=== PATIENT | female | born 1990 | race Caucasian/White ===

== ENCOUNTER 2021-10-31 19:11 | Emergency (ER) | payer OTHER, SELFPAY ==
[2021-10-31 19:12] VITALS: BP 178/118; PULSE 80; RESP 16; TEMP 36.1; O2SAT 100; BMI 45.4
--- NOTE | 2021-10-31 19:28 | CT_ITS ---
STUDY: CT ABDOMEN AND PELVIS WITH CONTRAST REASON FOR EXAM: Female, 31 years old. abdominal pain RADIATION DOSAGE (If Supplied By Facility): CTDIvol = ( 20.04 ) mGy, DLP = ( 1271.24 ) mGycm TECHNIQUE: Transaxial images were obtained from the dome of the diaphragm to the symphysis pubis without oral contrast. IV 100mL Isovue-370 was administered. Sagittal and coronal images were reconstructed. Individualized dose optimization techniques were used for this CT. COMPARISON: None. FINDINGS: The visualized lung bases are unremarkable. The visualized portions of the heart are within normal limits. Liver is prominent and fatty infiltrated without mass or bile duct dilatation.. Gallbladder is distended without calcified stones or pericholecystic edema. Normal spleen. There is borderline splenomegaly. Normal bilateral adrenal glands. Normal right kidney. Normal left kidney. Normal visualized stomach. Normal small intestine. Normal colon. The appendix is visualized and appears normal. Normal abdominal aorta. Normal inferior vena cava. Normal retroperitoneum. Normal urinary bladder. There is an air shadow seen within the vaginal vault possibly representing a tampon Normal abdominal wall. Normal osseous structures. CT/Abdomen/Pelvis W IV Cont ONLY IMPRESSION: Enlarged fatty infiltrated liver with borderline splenomegaly. Distended gallbladder without calcified stones or pericholecystic edema possibly physiologic. If concern for gallbladder disease ultrasound recommended Electronically Signed: Cheng Napier MD at 22:21 EST , Service support ,
--- NOTE | 2021-10-31 19:29 | EDS_ITS ---
HPI History of Present Illness Chief Complaint: Abd Pain Informant: patient Narrative Narrative: 31-year-old female arrives to the emergency department with right upper quadrant abdominal pain and nausea. Symptoms began not quite 2 hours ago. She notes the symptoms began about 2 hours after she ate some vegetables and tunafish. She states that prior to today she has not had any difficulty eating. She notes normal bowel movements and normal urination. She has had prior C- section surgeries but no other abdominal surgeries. [facility] Medical History GERD (gastroesophageal reflux disease) Hypertension in Home Medications NK 10/31/21 [History Last Taken Unknown] Allergy/AdvReac Type Severity Reaction Status Date / Time No Known Allergies Allergy Unverified 10/31/21 19:11 Family History Mother Depression Anxiety Liver disease Arthritis Hypertension Surgical History History of Social History Smoking Status: Former smoker alcohol intake: current substance use type: does not use what type of physical activity do you participate in: none ROS ROS ED Constitutional Constitutional ED: Denies chills, fever(s) or weight loss Eyes Eyes: Denies change in vision or diplopia ENT ENT ED: Denies ear pain, rhinorrhea or sore throat Cardiovascular Cardiovascular: Denies chest pain, orthopnea, palpitations or racing heartbeat Respiratory/Chest Respiratory/Chest: Denies cough, dyspnea or orthopnea Gastrointestinal Gastrointestinal: Reports abdominal pain and nausea; Denies constipation, diarrhea or vomiting Genitourinary Genitourinary ED: Denies dysuria, hematuria or urinary frequency Musculoskeletal Musculoskeletal: Denies arthralgias or myalgias Integumentary Denies abscess or rash Neurologic Neurologic: Denies headache(s) or weakness Psychiatric Psychiatric: Denies anxiety, depression, suicidal ideation or suicidal thoughts Endocrine Endocrinology: Denies polydipsia, polyphagia or polyuria Allergic/Immunologic Allergic/Immunologic ED: Denies mouth swelling, tongue swelling or urticaria EXAM Physical Exam Const Vital Signs: 10/31/21 19:12 Temperature 97 F L Temperature Source Temporal Pulse Rate 80 Respiratory Rate 16 Blood Pressure 178/118 H Blood Pressure Mean 138 Pulse Ox 100 Oxygen Delivery Method Room Air Positive well nourished, well developed and obese General Appearance ED: well developed Nutritional Appearance: obese HEENT Reports normocephalic, head/scalp atraumatic, TM's clear and moist mucous membranes Negative for trauma Tympanic Membrane ED: Yes TM's clear Eyes PERRL and EOMs intact bilaterally Neck no lymphadenopathy, supple and no JVD Resp normal respiratory effort and clear to auscultation bilaterally Cardio regular rate, regular rhythm and no murmurs GI non-tender Auscultation: normoactive bowel sounds Palpation: soft and tender RUQ; Negative for guarding or rebound tenderness pr esent Back/Spine no CVA tenderness and normal ROM Extremity normal to inspection General Extremety ED: Negative for edema General Extremity: Negative for edema Neuro oriented x3 and CN's II-XII intact bilaterally Sensorium / Orientation: alert Motor Exam: strength 5/5 throughout Psych mental status grossly normal Mood & Affect: Negative for depressed or tearful Skin no rashes or lesions noted and no wounds MDM MDM MDM Narrative Medical decision making narrative: Patient received morphine and Zofran and later Toradol for pain. Quick bedside ultrasound done by this physician does not demonstrate any pericholecystic fluid or cholelithiasis. White count 5.4 with a normal differential. CMP showed slight elevation in the transaminases 66 and 123 with an alk phos of 139. Total bilirubin was normal. Urinalysis and test were negative. Patient's care in the emergency department was delayed significantly and that we were not getting her urine test back within the normal timeframe. This required close to 2 hours to repeat get returned back from lab. Once obtained the patient was then taken to CT. Lab Data Attestation: I reviewed the patient's lab results. Labs: Laboratory Results - last 24 hr 10/31/21 10/31/21 10/31/21 19:38 19:38 20:10 WBC 5.4 RBC 4.85 Hgb 14.4 Hct 43.1 MCV 88.9 MCH 29.7 MCHC 33.4 RDW Std Deviation 41.6 RDW Coeff of [place] 12.7 Plt Count 172 MPV 10.5 Immature Gran % (Auto) 0.200 Neut % (Auto) 50.1 Lymph % (Auto) 39.3 [place] % (Auto) 7.8 Eos % (Auto) 2.0 Baso % (Auto) 0.6 Absolute Neuts (auto) 2.7 Absolute Lymphs (auto) 2.12 Nucleated RBC % 0 Sodium 140 Potassium 3.5 Chloride 107 Carbon Dioxide 27.0 Anion Gap 6 BUN 10 Creatinine 0.80 Estim Creat Clear Calc 88.79 Est GFR (MDRD) Af Amer 109 Est GFR (MDRD) Non-Af 90 BUN/Creatinine Ratio 12.5 Glucose 125 H Calcium 9.2 Total Bilirubin 0.50 AST 66 H ALT 123 H Alkaline Phosphatase 139 H Total Protein 7.5 Albumin 4.0 Globulin 3.5 Albumin/Globulin Ratio 1.1 Lipase 37 L Urine Color Yellow Urine Clarity Clear Urine pH 6.0 Ur Specific [place] 1.020 Urine Protein Negative Urine Glucose (UA) Normal Urine Ketones Negative Urine Occult Blood Negative Urine Nitrite Negative Urine Bilirubin Negative Urine Urobilinogen Normal Ur Leukocyte Esterase Negative Urine RBC 0 SEEN Urine WBC 0 SEEN Ur Squamous Epith Cells 0-5 SEEN Urine Bacteria 0 SEEN Urine Mucus 0 SEEN Urine Test Negative Discharge Plan Triage Chief Complaint: Abd Pain ED Provider: Abraham Xiong Dx/Rx/DC Orders Clinical Impression: Abdominal pain Prescriptions: No Action NK RF: 0 Primary Care Provider: Care Physician,No Primary Referrals: Care Physician,No Primary [Primary Care Provider] -
[2021-10-31] MEDS: Morphine 4 MG/ML Syringe IV (19:38)
[2021-10-31] MEDS: Ondansetron 4 MG/2 ML Vial IV (19:38)
[2021-10-31 20:04] LABS: Absolute Lymphocyte Count 2.12 X10^3/uL (0.83-4.51); Absolute Neutrophil Count 2.7 X10^3/uL (2.0-7.7); Basophil# 0.03 X10^3/uL; Basophil% 0.6 % (0-1); Eosinophil# 0.11 X10^3/uL; Hematocrit 43.1 % (37-47); Hemoglobin 14.4 g/dL (12.0-15.0); Lymphocyte # 2.12 X10^3/ul (0.83-4.51); Lymphocyte % 39.3 % (19-41); Mean Corp Hgb Conc 33.4 g/dL (32-36); Mean Corpuscular Hgb 29.7 pg (27.0-32.0); Mean Corpuscular Volume 88.9 fL (81-99); Mean Platelet Vol. 10.5 fl (6.2-12.0); Monocyte# 0.42 X10^3/uL; Monocyte% 7.8 % (0-10); NRBC Flagged by Analyzer 0 % (0-5); Neutrophil # 2.71 X10^3/uL (2.7-7.7); Neutrophil % 50.1 % (47-70); Platelet Count 172 K/mm3 (150-450); RBC Distribution Width CV 12.7 % (11.6-14.6); RBC Distribution Width SD 41.6 fl (35.1-43.9); Red Blood Count 4.85 M/mm3 (4.2-5.4); White Blood Count 5.4 K/mm3 (4.4-11.0)
[2021-10-31 20:19] LABS: ALB/GLOB Ratio 1.1 RATIO (0.9-2.4); AST(SGOT) 66 U/L (15-37); Alanine Aminotransfer ALT/SGPT 123 U/L (13-56); Alkaline Phosphatase 139 U/L (45-117); Anion Gap 6 (5-15); BUN 10 mg/dL (7-18); BUN/Creat Ratio 12.5 RATIO (10-20); Calcium,Total 9.2 mg/dL (8.5-10.1); Chloride 107 mmol/L (98-107); EST Glomerular Filtration Rate 90 mL/min (>60); Est Glom Filt Rate - Afr Amer 109 mL/min (>60); Estimated Creatinine Clearance 88.79 ml/min; Globulin 3.5 g/dL (2.2-4.2); Glucose 125 mg/dL (74-106); Lipase 37 U/L (73-393); Potassium 3.5 mmol/L (3.5-5.1); Protein, Total 7.5 g/dL (6.4-8.2); Sodium Level 140 mmol/L (136-145)
[2021-10-31 20:33] LABS: Bacteria 0 SEEN /hpf (None Seen); Mucous, Urine 0 SEEN /hpf (<or=2+); Red Blood Cells-Urine 0 SEEN /hpf (0-5); White Blood Cells 0 SEEN /hpf (0-5)
[2021-10-31 21:25] LABS: Color, Urine Yellow (Yellow); Glucose, Dipstick Normal (Normal); Ketone-Dipstick Negative (Negative); Leukocyte Esterase-Dipstick Negative /ul (Negative); Nitrite-Dipstick Negative (Negative); Occult Blood-Urine Negative /ul (Negative); Protein-Dipstick Negative (Negative); Urine Bilirubin Dipstick Negative (Negative); Urine Clarity Clear (Clear); Urine Urobilinogen Normal (Normal)
[2021-10-31 21:29] LABS: Internal QC Validated? YES +Cl - CLEAR BKGD; Pregnancy, Urine Negative Negative
[2021-10-31 21:42] LABS: Squamous Epithelial Cells - UA 0-5 SEEN /hpf (5-10)
[2021-10-31] MEDS: Ketorolac 30 MG/ML Syringe IV (21:46)
[2021-10-31 21:58] VITALS: BP 116/69; PULSE 56; RESP 16; TEMP 36.1; O2SAT 100
== END 2021-10-31 23:59 ==
LOC: ED 19:56
PROVIDERS: Emergency Provider Emergency Medicine; Visit Provider Emergency Medicine
DX: R10.11 Right upper quadrant pain (principal); R11.0 Nausea; E66.9 Obesity, unspecified; Z87.891 Personal history of nicotine dependence
CPT/HCPCS: 74177; 80053; 81001; 81025; 83690; 85025; 96374; 96375; 99283; A4216; J2405

== ENCOUNTER 2022-12-25 12:08 | Emergency (ER) | payer OTHER, SELFPAY ==
[2022-12-25 12:09] VITALS: BP 168/127; PULSE 114; RESP 18; TEMP 36.1; O2SAT 98; BMI 41.1
[2022-12-25 12:47] VITALS: BP 181/110; PULSE 104; RESP 18; TEMP 36.3; O2SAT 98
[2022-12-25 12:48] VITALS: BP 181/110; PULSE 101; RESP 18; TEMP 36.3; O2SAT 98
[2022-12-25 13:54] VITALS: BP 149/98; PULSE 98; RESP 19; TEMP 36.3; O2SAT 97
[2022-12-25] MEDS: HYDROcodone Bitartrate/Apap 5/325 Tablet PO (13:55)
--- NOTE | 2022-12-25 13:55 | ED.VIS.DENTA ---
HPI History of Present Illness Chief Complaint: Dental Informant: patient Narrative Narrative: Worsening gum pain since yesterday 3 teeth extraction 5 days ago from [facility]. She did well for couple days using Tylenol and ibuprofen. She had elevated blood pressure there she was told to monitor that she follow-up with the PCP office on Tuesday blood pressure is 130 over 70s. Was told to monitor. Increasing down pain yesterday went to urgent care started on Augmentin and was given a Toradol shot with transient relief. Since then using her Tylenol and Motrin with no relief. She tried calling her dentist yesterday and today there is no answering service. She comes here due to pain. Blood pressure was elevated. She is tolerated Cl[place] in the past from a previous extraction. [facility] Medical History GERD (gastroesophageal reflux disease) Hypertension in Home Medications hydrocodone-acetaminophen 5-325mg 5mg-325mg 1 tab PO Q6H PRN PRN Pain 3 days #12 TABLETS 10/31/21 [Rx Last Taken Unknown] ondansetron 4 mg disintegrating tablet 4 mg PO Q6H PRN PRN Nausea #15 tabs 10/31/21 [Rx Last Taken Unknown] hydrocodone-acetaminophen 5-325mg 5mg-325mg 1 tab PO Q6H PRN PRN Pain 3 days #10 TABLETS 12/25/22 [Rx Last Taken Unknown] ondansetron 4 mg disintegrating tablet 4 mg PO Q8H PRN PRN Nausea #10 tabs 12/25/22 [Rx Last Taken Unknown] Allergy/AdvReac Type Severity Reaction Status Date / Time No Known Allergies Allergy Verified 12/25/22 12:49 Family History Mother Depression Anxiety Liver disease Arthritis Hypertension Surgical History History of Social History Smoking Status: Former smoker alcohol intake: current substance use type: does not use what type of physical activity do you participate in: none ROS ROS ED Constitutional Constitutional ED: Denies chills, fever(s) or sweats Eyes Eyes: Denies change in vision ENT ENT ED: Reports other Details: Dental pain ; Denies dysphagia or sore throat Cardiovascular Cardiovascular: Denies chest pain, leg edema, palpitations or racing heartbeat Respiratory/Chest Respiratory/Chest: Denies cough, dyspnea or dyspnea on exertion Gastrointestinal Gastrointestinal: Denies abdominal pain, diarrhea, nausea or vomiting Genitourinary Genitourinary ED: Denies dysuria, hematuria or urinary frequency Musculoskeletal Musculoskeletal: Denies back pain, extremity pain or neck pain Integumentary Denies rash or wounds Neurologic Neurologic: Denies headache(s), paresthesias or weakness EXAM Physical Exam Const Vital Signs: 12/25/22 12:09 12/25/22 12:47 12/25/22 12:48 Temperature 97 F L 97.4 F L 97.4 F L Temperature Source Temporal Temporal Temporal Pulse Rate 114 H 104 H 101 H Respiratory Rate 18 18 18 Blood Pressure 168/127 H 181/110 H 181/110 H Blood Pressure Mean 140 133 133 Pulse Ox 98 98 98 Oxygen Delivery Method Room Air Room Air Room Air 12/25/22 13:54 12/25/22 13:57 Temperature 97.3 F L Temperature Source Temporal Pulse Rate 98 94 Respiratory Rate 19 H 18 Blood Pressure 149/98 H 157/96 H Blood Pressure Mean 115 Pulse Ox 97 96 Oxygen Delivery Method Room Air Positive well nourished and well developed General Appearance ED: well developed and NAD HEENT Reports moist mucous membranes HEENT Narrative: Post extractions of tooth 30 and 31 along with tooth 17, there is no drainage no focal fluctuance. There is no bleeding. No submandibular lymphadenopathy. normocephalic and atraumatic Eyes PERRL, EOMs intact bilaterally and conjunctivae normal General Eye ED: Yes normal appearance of both eyes Neck no lymphadenopathy and supple General: Negative for tenderness Chest Wall Chest: Negative for tenderness Resp normal respiratory effort and normal air movement Effort and Inspection: symmetric chest movement; Negative for respiratory distress Cardio regular rate, regular rhythm and no murmurs Peripheral Pulses: pulses 2+ throughout GI normal to inspection, nondistended, normoactive bowel sounds and non-tender Palpation: Negative for guarding or rebound tenderness present Back/Spine no CVA tenderness and no thoracic nor lumbar tenderness Extremity normal to inspection General Extremety ED: Negative for edema or tenderness General Extremity: Negative for edema Neuro oriented x3 and no sensory deficits noted Sensorium / Orientation: awake and alert Skin no rashes or lesions noted and no wounds MDM MDM MDM Narrative Medical decision making narrative: Interventions / MDM: Differential diagnosis: Postop gum pain, elevated blood pressure Diagnosis considered but do not suspect: Abscess however no drainage. My EKG interpretation: N/A Imaging independently reviewed and interpreted by myself: N/A External documents reviewed: N/A Test considered but not ordered:N/A ED course: Patient elevated blood pressure on arrival likely secondary to pain. Denies any hypertensive emergent symptoms. She is ordered for [place] she will finish her Augmentin. She will use Tylenol as needed also. She will avoid NSAIDs as it can elevate blood pressure. She will follow-up with her dentist. All questions were answered. Re-evaluation: stable Disposition discussed with patient/family/significant other: Patient Case discussed with consulting clinician: N/A Discharge Plan Triage Chief Complaint: Dental ED Provider: Ladarius Turpin Dx/Rx/DC Orders Clinical Impression: Dentalgia, Post-op pain, Elevated blood pressure reading Instructions: Managing Post-Op Pain at Home, ED Dental Pain Prescriptions: New hydrocodone-acetaminophen [hydrocodone-acetaminophen] 5-325 mg tablet 1 tab PO Q6H PRN PRN (Reason: Pain) 3 Days Qty: 10 0RF ondansetron [ondansetron] 4 mg tablet,disintegrating 4 mg PO Q8H PRN PRN (Reason: Nausea) Qty: 10 0RF No Action hydrocodone-acetaminophen [hydrocodone-acetaminophen] 1 TABLET tablet 1 tab PO Q6H PRN PRN (Reason: Pain) 3 Days Qty: 12 0RF ondansetron [ondansetron] 4 MG tablet 4 mg PO Q6H PRN PRN (Reason: Nausea) Qty: 15 0RF Primary Care Provider: Jayden Temple Referrals: Jayden Temple MD [Primary Care Provider] - Activity Restrictions/Additional Instructions: Follow-up with your dentist at [facility] for outpatient reevaluation finish your Augmentin continue Tylenol avoid NSAIDs due to your elevated blood pressure. [place] as needed. Disposition Disposition: Home, Self Care Discharge Date/Time: 12/25/22 14:06
[2022-12-25 13:57] VITALS: BP 157/96; PULSE 94; RESP 18; O2SAT 96
== END 2022-12-25 14:06 | disposition home or self-care (01) ==
PROVIDERS: Emergency Provider Emergency Medicine; PCP Internal Medicine; Visit Provider Emergency Medicine
DX: K08.89 Other specified disorders of teeth and supporting structures (principal); R03.0 Elevated blood-pressure reading, without diagnosis of hypertension; G89.18 Other acute postprocedural pain; Z87.891 Personal history of nicotine dependence
CPT/HCPCS: 99283

== ENCOUNTER 2023-08-17 01:43 | Emergency (ER) | payer OTHER, SELFPAY ==
[2023-08-17 01:43] VITALS: BP 145/100; PULSE 87; RESP 18; TEMP 36.9; O2SAT 98; BMI 41.8
--- NOTE | 2023-08-17 02:06 | CT_ITS ---
EXAM: CT ABDOMEN AND PELVIS WITH INTRAVENOUS CONTRAST CLINICAL INDICATION: RUQ abd pain TECHNIQUE: Helically acquired images were obtained of the abdomen and pelvis with intravenous contrast. This CT exam was performed using one or more of the following dose reduction techniques: automated exposure control, adjustment of the mA and/or kV according to patient size, and/or use of iterative reconstruction technique. CONTRAST: IV 100mL Isovue-370 RADIATION DOSE: CTDIvol = 16.78 mGy, DLP = 1301.17 mGy-cm COMPARISON: CT abdomen and pelvis 10/31/2021 FINDINGS: LOWER THORAX: Unremarkable. Lung bases are clear. No cardiomegaly. No significant pericardial effusion. ABDOMEN: LIVER: Fatty infiltration of the liver. GALLBLADDER AND BILE DUCTS: Unremarkable. No calcified gallstones. No gallbladder distention or wall edema. No intra- or extrahepatic biliary ductal dilation. PANCREAS: Unremarkable. No focal cystic or solid mass. No inflammation around the pancreas. SPLEEN: Unremarkable. Normal size without focal cystic or solid mass. ADRENALS: Unremarkable. No nodules. KIDNEYS AND URETERS: Unremarkable. Normal renal size and position. No hydronephrosis. STOMACH AND BOWEL: Unremarkable. No stomach or bowel distention. No focal inflammatory change. PELVIS: APPENDIX: The appendix is normal. BLADDER: Unremarkable. REPRODUCTIVE: Unremarkable as visualized. No mass. ABDOMEN and PELVIS: INTRAPERITONEAL SPACE: Unremarkable. No ascites or other fluid collection. No free air. BONES/JOINTS: Unremarkable. No suspicious lytic or blastic abnormality. SOFT TISSUES: Unremarkable. No discrete abdominal or pelvic wall hernia. VASCULATURE: Unremarkable. Abdominal aorta is non-dilated. LYMPH NODES: Unremarkable. No enlarged lymph nodes. CT/Abdomen/Pelvis W IV Cont ONLY IMPRESSION: No acute findings in the abdomen or pelvis. Fatty infiltration of the liver. Electronically Signed: Farhat Stewart MD at 2:45 EDT ,
--- NOTE | 2023-08-17 02:07 | ED.VIS.GI ---
HPI HPI - GI History of Present Illness Chief Complaint: Abd Pain Detail of Chief Complaint: Right upper quadrant abdominal pain beginning Tuesday evening into Tuesday Informant: patient Abdominal Pain/Flank Pain Onset: Days Context: Gradual Onset Timing: Continuous Quality: Dull Location: RUQ Current Severity: Moderate Maximum Severity: Moderate Worsened by: Food Relieved by: Nothing Nausea/Vomiting/Emesis GI Symptom: Positive for Nausea and Vomiting Onset: Today and Yesterday Severity: Mild Diarrhea/Melena/Hematochezia GI Symptom: Negative for Diarrhea, Melena or Hematochezia Associated Symptoms Associated Symptoms: Negative for Dysuria, Frequency, Hematuria or Urgency Narrative Narrative: 33-year-old female complaining of right upper quadrant abdominal pain that began Tuesday night and Tuesday morning. Pain is gotten worse. She denies any fever but she has had chills. She had nausea and vomiting today. Only prior abdominal and pelvic surgeries were 3 prior C-sections. She had a CAT scan a year ago that showed gallstones. Prior similar symptoms: No Recent Illness/Hospitalization: No PFSH PFS Medical History GERD (gastroesophageal reflux disease) Hypertension in Home Medications ondansetron 4 mg disintegrating tablet 4 mg PO Q6H PRN PRN Nausea #15 tabs 10/31/21 [Rx Last Taken Unknown] ondansetron 4 mg disintegrating tablet 4 mg PO Q8H PRN PRN Nausea #10 tabs 12/25/22 [Rx Last Taken Unknown] gabapentin 300 mg capsule 300 mg PO Q12H 08/17/23 [History Last Taken Unknown] meloxicam 15 mg tablet 15 mg PO DAILY 08/17/23 [History Last Taken Unknown] metformin 500 mg tablet 1,000 mg PO BID 08/17/23 [History Last Taken Unknown] ondansetron 4 mg disintegrating tablet 4 mg PO Q8H PRN PRN Nausea #10 tabs 08/17/23 [Rx Last Taken Unknown] Allergy/AdvReac Type Severity Reaction Status Date / Time No Known Allergies Allergy Verified 02/02/23 10:44 Family History Mother Depression Anxiety Liver disease Arthritis Hypertension Surgical History History of Social History Smoking Status: Former smoker alcohol intake: current substance use type: does not use what type of physical activity do you participate in: none ROS ROS ED ROS Narrative Right upper quadrant abdominal pain. Nausea vomiting. Chills. Review of Systems ROS Unobtainable: Denies due to encephalopathy Constitutional Constitutional ED: Reports chills; Denies fever(s) ENT ENT ED: Denies ear pain Cardiovascular Cardiovascular: Denies chest pain Respiratory/Chest Respiratory/Chest: Denies cough or dyspnea Gastrointestinal Gastrointestinal: Reports abdominal pain, nausea and vomiting; Denies constipation, diarrhea or melena Genitourinary Genitourinary ED: Denies dysuria or hematuria Musculoskeletal Musculoskeletal: Denies arthralgias Integumentary Denies abscess Neurologic Neurologic: Denies headache(s) Psychiatric Psychiatric: Denies anxiety Endocrine Endocrinology: Denies polydipsia Hematologic/Lymphatic Hematologic/Lymphatic: Denies easy bleeding Allergic/Immunologic Allergic/Immunologic ED: Denies mouth swelling, tongue swelling or urticaria EXAM Physical Exam Narrative Exam Narrative: Well-appearing 33-year-old female. Vital signs stable afebrile. She does not look septic toxic. She is in no distress. H EENT exam unremarkable. Moist use membranes. Neck nontender. Lungs are clear. Heart regular rhythm no murmur. Abdomen soft, nondistended no peritoneal signs. She does have right upper quadrant tenderness. No Rivera sign. Positive bowel sounds. No hernia or mass. Back nontender. Moving all 4 extremities. Nontender. No edema. She is awake and alert. Moving all 4 extremities. Const Vital Signs: 08/17/23 01:43 Temperature 98.4 F Temperature Source Oral Pulse Rate 87 Respiratory Rate 18 Blood Pressure 145/100 H Blood Pressure Mean 115 Pulse Ox 98 Oxygen Delivery Method Room Air Positive well nourished and well developed; Negative for cachectic, contractures or unkempt General Appearance ED: well developed and NAD; Negative for unkempt, cachectic, contractures or pallor Nutritional Appearance: Negative for cachectic HEENT Reports moist mucous membranes normocephalic and atraumatic; Negative for trauma or tenderness Eyes PERRL and EOMs intact bilaterally General Eye ED: Negative for pale conjunctiva or scleral icterus Neck no lymphadenopathy, supple and no JVD General: Negative for tenderness Carotids: Negative for other Lymph Lymphatic: Negative for other Resp normal respiratory effort and clear to auscultation bilaterally Effort and Inspection: Negative for respiratory distress Auscultation: Negative for rales, rhonchi or wheezes Cardio regular rate, regular rhythm, S1 normal heart sound, S2 normal heart sound and no murmurs Rate: Negative for bradycardia or tachycardic Rhythm: Negative for abnormal rhythm GI non-distended and no masses; Negative for non-tender Inspection: Negative for abdominal distention Auscultation: normoactive bowel sounds Palpation: soft and tender; Negative for guarding, rigid, hepatomegaly, splenomegaly, hernia, mass, pulsatile mass or rebound tenderness present Back/Spine no CVA tenderness General Back: Negative for CVA tenderness Cervical Spine: Negative for cervical spine tenderness Thoracic Spine / Upper Back: Negative for thoracic spinal tenderness Lumbar Spine / Lower Back: Negative for lumbar spinal tenderness Coccyx: Negative for other Extremity full ROM General Extremety ED: Negative for edema or tenderness General Extremity: Negative for edema Neuro moves all extremities Sensorium / Orientation: alert, oriented to person, oriented to place and oriented to time; Negative for orientation impaired, confused or lethargic Motor Exam: strength 5/5 throughout Psych mental status grossly normal and thought process normal Appearance: Negative for unkempt Attitude: No agitated Mood & Affect: Negative for depressed, anxious or tearful Skin no wounds General Skin Exam: Negative for jaundice or pallor Lesions: no lesions Rashes: no rashes Trauma: Negative for abrasion Nails: Negative for discolored MDM MDM MDM Narrative Medical decision making narrative: 33-year-old female with prior C-sections x3 and a tubal ligation. Plan right upper quadrant abdominal pain since Tuesday night. This could be associated with gallstones or acute cholecystitis versus other etiologies. CAT scan labs being obtained. Initially treated with Toradol for pain and Zofran for nausea. Repeat exam patient is doing well at 3 AM. She did receive a dose of morphine and a second dose of Zofran for nausea. She is resting comfortably. There is no peritoneal signs of her abdomen. She and I went over her test results her lab work was basically unremarkable and her CAT scan showed no specific acute abnormalities. No signs of acute cholecystitis, gallstones or biliary obstruction. She and I discussed that she needs an outpatient ultrasound of her gallbladder. She is comfortable with the plan. History & Record Review Discussion w/independent historian: Patient Additional record(s) reviewed:: Prior inpatient record, Prior outpatient record, Prior ED visit and Prior labs Lab Data Attestation: I reviewed the patient's lab results. Lab results narrative: CBC shows a white count 6.2. H&H of 15 and 46. Platelets 185. CMP shows a potassium of 3.4 gap of 8. A normal BUN and creatinine. Glucose 179. Liver enzymes show an AST of 53 and ALT of 82. Otherwise unremarkable. Lipase is normal at 19. Labs are unremarkable when compared to prior. CAT scan of the abdomen showed no acute abnormality. Unremarkable gallbladder. Labs: Laboratory Results - last 24 hr 08/17/23 01:55 WBC 6.2 RBC 5.42 H Hgb 15.5 H Hct 46.2 MCV 85.2 MCH 28.6 MCHC 33.5 RDW Std Deviation 38.6 RDW Coeff of Leatha 12.5 Plt Count 185 MPV 9.8 Immature Gran % (Auto) 0.200 Neut % (Auto) 57.8 Lymph % (Auto) 33.3 Foster % (Auto) 6.3 Eos % (Auto) 1.8 Baso % (Auto) 0.6 Absolute Neuts (auto) 3.6 Absolute Lymphs (auto) 2.08 Nucleated RBC % 0 Sodium 137 Potassium 3.4 L Chloride 104 Carbon Dioxide 25.0 Anion Gap 8 BUN 10 Creatinine 0.88 Estim Creat Clear Calc 79.25 Est GFR (MDRD) Af Amer 96 Est GFR (MDRD) Non-Af 80 BUN/Creatinine Ratio 11.4 Glucose 179 H Calcium 8.9 Total Bilirubin 0.80 AST 53 H ALT 82 H Alkaline Phosphatase 101 Total Protein 7.4 Albumin 4.3 Globulin 3.1 Albumin/Globulin Ratio 1.4 Lipase 19 Radiography Diagnostic Testing: Clinical Impression(s) from Imaging Studies Abdomen/Pelvis CT 08/17/23 02:06 IMPRESSION: No acute findings in the abdomen or pelvis. Fatty infiltration of the liver. Electronically Signed: Farhat Stewart MD at 2:45 EDT , Discharge Plan Triage Chief Complaint: Abd Pain ED Provider: Craig Tellez Dx/Rx/DC Orders Clinical Impression: History of diabetes mellitus, Abdominal pain Instructions: Abdominal Pain Prescriptions: New ondansetron 4 mg tablet,disintegrating 4 mg PO Q8H PRN PRN (Reason: Nausea) Qty: 10 0RF No Action ondansetron [ondansetron] 4 MG tablet 4 mg PO Q6H PRN PRN (Reason: Nausea) Qty: 15 0RF ondansetron [ondansetron] 4 mg tablet,disintegrating 4 mg PO Q8H PRN PRN (Reason: Nausea) Qty: 10 0RF gabapentin 300 mg capsule 300 mg PO Q12H Patient Comments: take 1 capsule by mouth twice a day metformin 500 mg tablet 1,000 mg PO BID Patient Comments: take 2 tablets by mouth twice a day with meals meloxicam 15 mg tablet 15 mg PO DAILY Patient Comments: take 1 tablet by mouth once daily with food Primary Care Provider: Jayden Temple Referrals: Jayden Temple MD [[facility]] - As soon as possible (Call your primary care doctor's office, Dr. Jayden Temple, later today. Tell them you need a ultrasound of your gallbladder done. Your pain may be secondary to gallbladder disease or even gallstones.) Activity Restrictions/Additional Instructions: Motrin and Tylenol for pain. Zofran for nausea. Your labs and CAT scan tonight were unremarkable. Call your primary care physician's office. Tell them you need to be set up for an ultrasound of your gallbladder as soon as possible. This may be secondary to gallstones or gallbladder disease. Disposition Disposition: Home, Self Care
[2023-08-17] MEDS: Ondansetron 4 MG/2 ML Vial IV ×2 (02:10→02:41)
[2023-08-17 02:11] LABS: Absolute Lymphocyte Count 2.08 X10^3/uL (0.83-4.51); Absolute Neutrophil Count 3.6 X10^3/uL (2.0-7.7); Basophil# 0.04 X10^3/uL; Basophil% 0.6 % (0-1); Eosinophil# 0.11 X10^3/uL; Eosinophils% 1.8 % (0-5); Hematocrit 46.2 % (37-47); Hemoglobin 15.5 g/dL (12.0-15.0); Lymphocyte # 2.08 X10^3/ul (0.83-4.51); Lymphocyte % 33.3 % (19-41); Mean Corp Hgb Conc 33.5 g/dL (32-36); Mean Corpuscular Hgb 28.6 pg (27.0-32.0); Mean Corpuscular Volume 85.2 fL (81-99); Mean Platelet Vol. 9.8 fl (6.2-12.0); Monocyte# 0.39 X10^3/uL; Monocyte% 6.3 % (0-10); NRBC Flagged by Analyzer 0 % (0-5); Neutrophil # 3.61 X10^3/uL (2.7-7.7); Neutrophil % 57.8 % (47-70); Platelet Count 185 K/mm3 (150-450); RBC Distribution Width CV 12.5 % (11.6-14.6); RBC Distribution Width SD 38.6 fl (35.1-43.9); Red Blood Count 5.42 M/mm3 (4.2-5.4); White Blood Count 6.2 K/mm3 (4.4-11.0)
[2023-08-17] MEDS: Ketorolac 30 MG/ML Syringe IV (02:11)
[2023-08-17] MEDS: morphine 8 MG/ML Syringe 6 MG IV (02:41)
[2023-08-17 02:45] LABS: ALB/GLOB Ratio 1.4 RATIO (0.9-2.4); AST(SGOT) 53 U/L (15-37); Alanine Aminotransfer ALT/SGPT 82 U/L (13-56); Albumin, Serum 4.3 g/dL (3.2-5.0); Alkaline Phosphatase 101 U/L (45-117); Anion Gap 8 (5-15); BUN 10 mg/dL (7-18); BUN/Creat Ratio 11.4 RATIO (10-20); Calcium,Total 8.9 mg/dL (8.5-10.1); Chloride 104 mmol/L (98-107); Creatinine, Serum 0.88 mg/dL (0.55-1.02); EST Glomerular Filtration Rate 80 mL/min (>60); Est Glom Filt Rate - Afr Amer 96 mL/min (>60); Estimated Creatinine Clearance 79.25 ml/min; Globulin 3.1 g/dL (2.2-4.2); Glucose 179 mg/dL (74-106); Lipase 19 U/L (13-75); Potassium 3.4 mmol/L (3.5-5.1); Protein, Total 7.4 g/dL (6.4-8.2); Sodium Level 137 mmol/L (136-145)
== END 2023-08-17 04:00 | disposition home or self-care (01) ==
PROVIDERS: Emergency Provider Emergency Medicine; PCP Internal Medicine; Visit Provider Emergency Medicine
DX: R10.11 Right upper quadrant pain (principal); E11.9 Type 2 diabetes mellitus without complications; Z87.891 Personal history of nicotine dependence; R11.0 Nausea
CPT/HCPCS: 74177; 80053; 83690; 85025; 96374; 96375; 96376; 99283; Q9967; A4216; J2405

== ENCOUNTER 2023-12-02 16:19 | Emergency (ER) | payer OTHER, SELFPAY ==
[2023-12-02 16:20] VITALS: BP 171/121; PULSE 126; RESP 20; TEMP 36.6; O2SAT 97; BMI 43.0
--- NOTE | 2023-12-02 18:57 | EDS_ITS ---
HPI History of Present Illness Chief Complaint: Dental [facility] Medical History GERD (gastroesophageal reflux disease) Hypertension in Home Medications ondansetron 4 mg disintegrating tablet 4 mg PO Q6H PRN PRN Nausea #15 tabs 10/31/21 [Rx Last Taken Unknown] ondansetron 4 mg disintegrating tablet 4 mg PO Q8H PRN PRN Nausea #10 tabs 12/25/22 [Rx Last Taken Unknown] gabapentin 300 mg capsule 300 mg PO Q12H 08/17/23 [History Last Taken Unknown] meloxicam 15 mg tablet 15 mg PO DAILY 08/17/23 [History Last Taken Unknown] metformin 500 mg tablet 1,000 mg PO BID 08/17/23 [History Last Taken Unknown] ondansetron 4 mg disintegrating tablet 4 mg PO Q8H PRN PRN Nausea #10 tabs 08/17/23 [Rx Last Taken Unknown] amoxicillin 875 mg-potassium clavulanate 125 mg tablet 1 tab PO BID #14 tabs 12/02/23 [Rx Last Taken Unknown] Allergy/AdvReac Type Severity Reaction Status Date / Time No Known Allergies Allergy Verified 02/02/23 10:44 Family History Mother Depression Anxiety Liver disease Arthritis Hypertension Surgical History History of Social History Smoking Status: Former smoker alcohol intake: current substance use type: does not use what type of physical activity do you participate in: none EXAM Physical Exam Const Vital Signs: 12/02/23 16:20 12/02/23 19:15 Temperature 97.8 F Temperature Source Temporal Pulse Rate 126 H 98 Respiratory Rate 20 H 12 Blood Pressure 171/121 H 165/104 H Blood Pressure Mean 137 124 Pulse Ox 97 98 Oxygen Delivery Method Room Air Room Air MDM MDM MDM Narrative Medical decision making narrative: HISTORY OF PRESENT ILLNESS: 33-year-old female presents with dental pain.States she was prescribed amoxicillin 3 days ago. Seen at well now and given Toradol. Notes he has uncontrollable pain. His appointment on Tuesday. REVIEW OF SYSTEMS: Pertinent positives: Dental pain Pertinent negatives: Sore throat, fevers, stridor, drooling PHYSICAL EXAM: Nursing triage notes reviewed, Vital signs reviewed Constitutional: please see mdm HENT: MMM, poor dentition, dental caries no evidence of dental abscess, no submandibular edema or induration, no tonsillar exudates or erythema, uvula midline, patient was controlling secretions, no drooling, no trimus, no dy sphonia Eyes: Pupils equal round and reactive to light, Extraocular muscles intact Neck: No stridor, no JVD, full neck ROM, no neck TTP, no lymphadenopathy Lungs: Clear to auscultation, No wheezing or rales. No increased work of breathing, no conversational dyspnea, no accessory muscle use, no nasal flaring. No respiratory distress noted Heart: Regular rate and rhythm, No murmurs, No rubs and No gallops, 2+ distal pulses (radial, femoral, posterior tibial) in all extremities MEDICAL DECISION MAKING: Chief Complaint: Dental pain External records reviewed: [facility] Narrative: The patient was initially hypertensive, tachycardic. This resolved after pain medication. I considered the following differential diagnosis: Dental abscess, ANUG, Ludewig's angina, RPA, INTENSIVE CARE ANAESTHETIST, dental caries, gingivitis Exam without evidence of RPA, INTENSIVE CARE ANAESTHETIST, gingivitis, dental abscess, ANUG or Dereck angina, no signs of Lemierre's syndrome. Patient did have poor dentition and significant pains are offered dental block. Please see below procedure note. Bupivacaine was injected with improvement in pain. Patient was discharged with close dentistry follow-up. Prescription given for Augmentin per patient request to switch from amoxicillin to Augmentin. Procedure: Nerve Block The procedure was performed by myself. Indication: Pain Risks and Benefits: Discussed risk of infection, intravenous injection and bleeding. Consent: Verbal Consent obtained from patient and/or legal guardian Location: Right inferior alveolar nerve Procedure Description: Palpated the coronoid notch, inserted a 27-gauge, 1 and half inch needle, retracted plunger to ensure no vessel involvement or bloody show and injected approximately 5 cc (25 mg) of bupivacaine into the medial surface of the mandible. This achieved complete anesthesia of the right lower jaw and resolution of pain. Patient tolerance of procedure: Tolerated well, no immediate complications Factors affecting care: GERD, hypertension Social determinants of health: None History obtained from others: None Shared decision making: I will have a discussion with the patient and or visitors regarding risk/benefits of further testing or admission. They will be made aware of of the risk/benefits inherent in this decision they will be given the opportunity to voice understanding. Consults: None Impression: 1. Dental caries Disposition: Discharge home Procedures Other Procedures Procedure(s): Discharge Plan Triage Chief Complaint: Dental ED Provider: Get Sin Dx/Rx/DC Orders Clinical Impression: Dental caries Instructions: ED Dental Pain Prescriptions: New amoxicillin-pot clavulanate 875-125 mg tablet 1 tab PO BID Qty: 14 0RF No Action ondansetron [ondansetron] 4 MG tablet 4 mg PO Q6H PRN PRN (Reason: Nausea) Qty: 15 0RF ondansetron [ondansetron] 4 mg tablet,disintegrating 4 mg PO Q8H PRN PRN (Reason: Nausea) Qty: 10 0RF gabapentin 300 mg capsule 300 mg PO Q12H Patient Comments: take 1 capsule by mouth twice a day metformin 500 mg tablet 1,000 mg PO BID Patient Comments: take 2 tablets by mouth twice a day with meals meloxicam 15 mg tablet 15 mg PO DAILY Patient Comments: take 1 tablet by mouth once daily with food ondansetron 4 mg tablet,disintegrating 4 mg PO Q8H PRN PRN (Reason: Nausea) Qty: 10 0RF Primary Care Provider: Jayden Temple Referrals: Jayden Temple MD [Primary Care Provider] - Activity Restrictions/Additional Instructions: Thank you for trusting us with your care today! Please take Tylenol (2 pills, 650 mg), ibuprofen (2 pills, 400 mg) every 6 hours as needed for pain and fever control. Please return to the emergency department if your symptoms change or worsen. Please follow with Dentistry for further outpatient evaluation and management. Disposition Disposition: Home, Self Care Discharge Date/Time: 12/02/23 19:59
[2023-12-02 19:15] VITALS: BP 165/104; PULSE 98; RESP 12; O2SAT 98
[2023-12-02] MEDS: Oxycodone/Apap 5/325 Tablet PO (19:32)
[2023-12-02] MEDS: Bupivacaine Mpf 0.5% 30 ML VIAL INFILT (19:33)
[2023-12-02] MEDS: Ibuprofen 200 MG Tablet 400 MG PO (19:37)
--- OUTSIDE RECORDS SUMMARY | 2023-12-02 19:54 | XMS RPT_ITS | CCD ---
Author Name Unknown Address [address] [place] [address]
[2023-12-02 19:59] VITALS: BP 116/74; PULSE 81; RESP 16; TEMP 36.1; O2SAT 99
== END 2023-12-02 19:59 | disposition home or self-care (01) ==
LOC: ED 19:51
PROVIDERS: Emergency Provider Emergency Medicine; PCP Internal Medicine; Visit Provider Emergency Medicine
DX: K02.9 Dental caries, unspecified (principal); Z87.891 Personal history of nicotine dependence
CPT/HCPCS: 64450; 64999; 99283